=== PATIENT | male | born 1970 ===

== ENCOUNTER 2018-03-24 08:08 | Day surgery (SDC) | payer OTHER ==
[~2018-03-24 08:08] MED LIST: Acetaminophen-Codeine 300/30 mg Tab PO PRN; Dextrose 5%/0.45% NS 1,000 ML IV SCH; EPINEPHrine 1:1000 Nasal Sol(30mL) ONE; Lidocaine/Epinephrine 1% 1:100000 10 ML IJ ONE; ceFAZolin IV 1 gm in Dextrose 1 GM/50 ML BAG IVPB ONE
[2018-03-24] MEDS ORDERED: Midazolam 2 MG/2 ML VIAL ONE (10:01)
[2018-03-24] MEDS ORDERED: Propofol 10 mg/ml Inj (20 ML) ONE (10:01)
[2018-03-24] MEDS ORDERED: ceFAZolin 1 gm FROZEN Premix 1 GM/50 ML ML IVPB ONE (10:20)
[2018-03-24] MEDS ORDERED: Rocuronium 10 mg/ml (5 ml) ONE (10:24)
[2018-03-24] MEDS ORDERED: Lidocaine/Epinephrine 1% 1:100000 10 ML IJ ONE (10:27)
[2018-03-24] MEDS ORDERED: Lactated Ringer's 1,000 ML IV ONE (12:06)
[2018-03-24] MEDS: HYDROmorphone 0.5 mg/0.5 ml ISec IVP PRN ×3 (12:22→13:15)
[2018-03-24 14:25] VITALS: BP 127/80; PULSE 68; RESP 18; TEMP 98; O2SAT 100
--- NOTE | 2018-03-24 22:05 | OP ---
PROCEDURE DATE: 03/24/2018 PREOPERATIVE DIAGNOSES: Large turbinates, sinusitis, nasal polyps. POSTOPERATIVE DIAGNOSES: Large turbinates, sinusitis, nasal polyps. PROCEDURE: Endoscopic bilateral maxillary antrostomy, endoscopic bilateral ethmoidectomy, endoscopic bilateral sphenoidotomy, endoscopic bilateral frontal sinusotomy, endoscopic bilateral inferior turbinate reduction. SIGNIFICANT FINDINGS: Maxillary antrum stenosed on both sides. Polyposis noted in the ethmoid sinuses. Inferior turbinates enlarged, sphenoid antrum stenosed on both sides, frontal recess stenosed on both sides. DESCRIPTION OF PROCEDURE: The patient was brought into the room, placed in supine position, anesthesia was initiated through an ET tube. The patient was draped in the usual manner. Navigation was set up and used throughout the case in order to ensure that the skull base and orbit were not entered. Adrenaline-soaked pledgets were inserted into the nasal cavity and remained there for 5 minutes and removed. Attention was turned to the left. Polyps were noted emanating from the middle meatus. They were injected lidocaine with epinephrine. A debrider was used to remove the polyps. Next, the middle turbinate was medialized. A debrider was used to remove the uncinate process that had polyps in it. The ethmoid bulla was entered inferomedially, going posteriorly to the basal lamella, anterior and superiorly until the ethmoid bulla was removed. The basal lamella was entered. Posterior ethmoid cells were entered and opened. Skull base was identified and followed anteriorly all the way to the area of the anterior ethmoid air cells. Frontal recess was noted to be stenosed and opened using forceps. The sphenoid antrum was noted to be stenosed and opened using forceps. The maxillary antrum was noted to be stenosed and opened using forceps. Bleeding was controlled using suction cautery and adrenaline-soaked pledgets. The inferior turbinate was reduced using scissors. The bleeding from the inferior turbinate was controlled using suction cautery. Next, attention was turned to the other side and the polyps emanating from the middle meatus were injected with lidocaine with epinephrine and removed using a debrider. The middle turbinate was medialized. The uncinate process was removed using a debrider. Polyps were noted inside this. The ethmoid bulla was entered inferomedially going posteriorly to the basal lamella, then anterior and superiorly until the ethmoid bulla was removed. The basal lamella was entered. Posterior ethmoid cells were entered and opened. The skull base was identified and followed anteriorly all the way to the area of the anterior ethmoid air cells. The frontal recess was noted to be stenosed and opened using forceps. The sphenoid antrum was noted to be stenosed and opened using forceps. The maxillary antrum was noted to be stenosed and opened using forceps. The inferior portion of the inferior turbinate was cut using scissors. Bleeding was controlled using suction cautery. Bleeding was controlled on both sides using suction cautery and adrenaline-soaked pledgets. Stents were placed after FloSeal was placed to control bleeding. The patient was taken off anesthesia and taken to recovery room in stable manner. Edu Sky MD [email or web address]
== END 2018-03-24 15:09 | disposition home or self-care (01) ==
LOC: C.SDS 08:08
PROVIDERS: ATTEND Otolaryngology
DX: J34.2 Deviated nasal septum (principal); J32.0 Chronic maxillary sinusitis; J32.1 Chronic frontal sinusitis; J34.3 Hypertrophy of nasal turbinates; J32.2 Chronic ethmoidal sinusitis; J32.3 Chronic sphenoidal sinusitis; J33.9 Nasal polyp, unspecified; E11.9 Type 2 diabetes mellitus without complications; E78.00 Pure hypercholesterolemia, unspecified
CPT/HCPCS: 30130; 31020; 31050; 31201; 31276; 61781; 82948; 88304; 88311; C2615; J0690; J1100; J1170; J2001; J2250; J2704; J3010; J7120